=== PATIENT | female | born 1970 | race Caucasian/White ===

== ENCOUNTER 2020-07-08 12:09 | Observation (INO) | payer SELFPAY ==
[~2020-07-08] VITALS: Ht 160 cm; Wt 49.9 kg
[~2020-07-08 12:09] MED LIST: ALBU90OI6 INH; AMOX500 PO; BISA5EC PO; CODACE30 PO; CYCL10 PO; DIAZ5; DIAZ5 PO; DIPH25 PO; EPIN.3I IM; FLUO.1OPO OU; HYDACE5 PO; IBUP600 PO; IBUP800 PO; LORATADINE; MAGCIT300 PO; NAPR375 PO; NAPR500 PO; Norco 5-325 Ta1 EACH PO; OMEP20ER PO; PENVK500 PO; PRED10 PO; PRED20 PO; PROACE100 PO; PROM25 PO; RXPROACE PO; TRAM50 PO; Zithromax250 MG PO
[2020-07-08 12:58] LABS: Source, Urine Clean Catch
[2020-07-08 13:03] LABS: BASOPHILS ABSOLUTE AUTO 0.02 K/mm3 (0.00-0.23); BASOPHILS PERCENT AUTO 0 % (0-2); EOSINOPHILS ABSOLUTE AUTO 0.08 K/mm3 (0.00-0.68); EOSINOPHILS PERCENT AUTO 1 % (0-6); Hematocrit 44.4 % (33.0-51.0); Hemoglobin 14.1 g/dL (11.5-16.0); IMMATURE GRAN ABSOLUTE AUTO 0.01 K/mm3 (0.00-0.10); IMMATURE GRAN PERCENT AUTO 0 % (0-1); LYMPHOCYTES ABSOLUTE AUTO 1.71 K/mm3 (0.84-5.20); LYMPHOCYTES PERCENT AUTO 27 % (21-46); MONOCYTES ABSOLUTE AUTO 0.33 K/mm3 (0.16-1.47); MONOCYTES PERCENT AUTO 5 % (4-13); Mean Corpuscular HGB 28.2 pg (26.0-34.0); Mean Corpuscular HGB Conc 31.8 g/dL (31.5-36.5); Mean Corpuscular Volume 89 fL (80-100); Mean Platelet Volume 9.9 fL (9.1-12.4); NEUTROPHILS ABSOLUTE AUTO 4.17 K/mm3 (1.96-9.15); NEUTROPHILS PERCENT AUTO 66 % (41-73); Platelet Count 218 K/mm3 (150-400); RDW Coefficient Variation 13.3 % (11.7-14.2); RDW Standard Deviation 43.5 fL (35.1-46.3); White Blood Cell Count 6.32 K/mm3 (4.00-11.30)
[2020-07-08 13:06] LABS: Appearance, Urine Clear (Clear); Bilirubin, Urine Neg (Neg); Blood, Urine Neg (Neg); Color, Urine Yellow (P-Yellow); Glucose Qualitative, Urine Neg (Neg); Ketones, Urine Neg (Neg); Leukocyte Esterase, Urine Neg (Neg); Nitrite, Urine Neg (Neg); Protein, Urine Neg (Neg); Urobilinogen, Urine NORM (Normal); pH, Urine 6.5 (5.0-8.0)
[2020-07-08 13:21] LABS: Alanine Aminotransfer (ALT/SGP 18 U/L (12-78); Albumin, Blood 3.8 g/dL (3.4-5.0); Albumin/Globulin Ratio 1.2 (0.8-1.8); Alk Phos 61 U/L (50-136); Anion Gap 4 mmol/L (6-16); Aspartate Aminotrans (AST/SGOT 11 U/L (12-37); Bilirubin, Total 0.4 mg/dL (0.1-1.0); Blood Urea Nitrogen 11 mg/dL (8-24); Bun/Creatinine Ratio 15.4 (12.0-20.0); CO2, Blood 29 mmol/L (21-32); Calcium, Blood 9.1 mg/dL (8.5-10.1); Chloride, Blood 108 mmol/L (98-108); Creatinine, Blood 0.71 mg/dL (0.40-1.00); Ethanol (Alcohol), Blood, Med <3 mg/dL; Globulin, Blood 3.3 g/dL (2.2-4.0); Glomerular Filtration Rate >60 (60-); Glucose, Blood 82 mg/dL (70-99); Potassium, Blood 4.4 mmol/L (3.5-5.5); Salicylate 3.6 mg/dL (2.8-20.0); Sodium, Blood 141 mmol/L (136-145); Total Protein, Blood 7.1 g/dL (6.4-8.2)
[2020-07-08 13:25] LABS: U Amphetamine Screen DETECTED; U Barbituate Screen Not Detected; U Benzodiazapine Screen Not Detected; U Buprenorphine Screen Not Detected; U Cannabinoids Screen Not Detected; U Cocaine Screen Not Detected; U Methadone Screen Not Detected; U Methamphetamine Screen Not Detected; U Opiates Screen Not Detected; U Oxycodone Screen Not Detected; U Phencyclidine Screen Not Detected; U Propoxyphene Screen Not Detected
[2020-07-08 13:27] LABS: Acetaminophen, Random <2.0 ug/mL (10.0-30.0)
== END 2020-07-11 08:20 ==
LOC: ER 12:09 → EOR 12:10
PROVIDERS: ADMIT Emergency Medicine
DX: F20.9 Schizophrenia, unspecified (principal); F15.10 Other stimulant abuse, uncomplicated; F12.10 Cannabis abuse, uncomplicated; F43.10 Post-traumatic stress disorder, unspecified; J45.909 Unspecified asthma, uncomplicated; Z88.1 Allergy status to other antibiotic agents; Z91.013 Allergy to seafood; Z20.828 Contact with and (suspected) exposure to other viral communicable diseases
CPT/HCPCS: 36415; 80053; 81003; 81025; 85025; 93005; 93010; 99285; G0378; G0480; Q3014; U0002

== ENCOUNTER → 2021-03-12 | Outpatient (CLI) | payer OTHER | END | disposition home or self-care (01) | LOC: LAB 14:20 → LAB SHORT 14:20 | DX: N30.00 Acute cystitis without hematuria (principal) | CPT/HCPCS: 87086 ==

== ENCOUNTER 2021-08-25 11:29 | Observation (INO) | payer OTHER ==
[~2021-08-25] VITALS: Ht 162.6 cm; Wt 68.0 kg
[~2021-08-25 11:29] MED LIST changes: +HYDHCL25 PO; +OLAN10 PO; +PSEUDOEPHEDRINE30 M2 PO; +SERT25 PO; +TRAZ100 PO
[2021-08-25 16:14] LABS: BASOPHILS ABSOLUTE AUTO 0.01 K/mm3 (0.00-0.23); BASOPHILS PERCENT AUTO 0 % (0-2); EOSINOPHILS ABSOLUTE AUTO 0.02 K/mm3 (0.00-0.68); EOSINOPHILS PERCENT AUTO 0 % (0-6); Hematocrit 40.1 % (33.0-51.0); Hemoglobin 13.2 g/dL (11.5-16.0); IMMATURE GRAN ABSOLUTE AUTO 0.01 K/mm3 (0.00-0.10); IMMATURE GRAN PERCENT AUTO 0 % (0-1); LYMPHOCYTES ABSOLUTE AUTO 1.44 K/mm3 (0.84-5.20); LYMPHOCYTES PERCENT AUTO 26 % (21-46); MONOCYTES ABSOLUTE AUTO 0.35 K/mm3 (0.16-1.47); MONOCYTES PERCENT AUTO 6 % (4-13); Mean Corpuscular HGB 27.8 pg (26.0-34.0); Mean Corpuscular HGB Conc 32.9 g/dL (31.5-36.5); Mean Corpuscular Volume 85 fL (80-100); Mean Platelet Volume 10.1 fL (9.1-12.4); NEUTROPHILS ABSOLUTE AUTO 3.74 K/mm3 (1.96-9.15); NEUTROPHILS PERCENT AUTO 67 % (41-73); Platelet Count 297 K/mm3 (150-400); RDW Coefficient Variation 12.8 % (11.7-14.2); RDW Standard Deviation 39.6 fL (35.1-46.3); Red Blood Cell Count 4.74 M/mm3 (3.80-5.20); White Blood Cell Count 5.57 K/mm3 (4.00-11.30)
[2021-08-25 16:17] LABS: Source, Urine Clean Catch
[2021-08-25 16:42] LABS: Alanine Aminotransfer (ALT/SGP 15 U/L (12-78); Albumin, Blood 3.6 g/dL (3.4-5.0); Albumin/Globulin Ratio 0.9 (0.8-1.8); Alk Phos 77 U/L (50-136); Anion Gap 3 mmol/L (6-16); Aspartate Aminotrans (AST/SGOT 11 U/L (12-37); Bilirubin, Total 0.5 mg/dL (0.1-1.0); Blood Urea Nitrogen 12 mg/dL (8-24); Bun/Creatinine Ratio 14.7 (12.0-20.0); CO2, Blood 29 mmol/L (21-32); Calcium, Blood 9.2 mg/dL (8.5-10.1); Chloride, Blood 105 mmol/L (98-108); Creatinine, Blood 0.81 mg/dL (0.40-1.00); Ethanol (Alcohol), Blood, Med <3 mg/dL; Globulin, Blood 3.8 g/dL (2.2-4.0); Glomerular Filtration Rate >60 (60-); Glucose, Blood 81 mg/dL (70-99); Potassium, Blood 4.3 mmol/L (3.5-5.5); Salicylate 1.9 mg/dL (2.8-20.0); Sodium, Blood 137 mmol/L (136-145); Total Protein, Blood 7.4 g/dL (6.4-8.2)
[2021-08-25 16:58] LABS: Appearance, Urine Clear (Clear); Bilirubin, Urine Neg (Neg); Blood, Urine Neg (Neg); Color, Urine Yellow (P-Yellow); Glucose Qualitative, Urine Neg (Neg); Ketones, Urine 2+ (Neg); Leukocyte Esterase, Urine 1+ (Neg); Nitrite, Urine Neg (Neg); Protein, Urine Neg (Neg); Specific Gravity, Urine 1.025 (1.003-1.022); Urobilinogen, Urine NORM (Normal)
[2021-08-25 17:00] LABS: SARS-Cov-2 (COVID-19) PCR, MMC NEGATIVE (NEGATIVE)
[2021-08-25 18:16] LABS: U Amphetamine Screen DETECTED; U Barbituate Screen Not Detected; U Benzodiazapine Screen Not Detected; U Buprenorphine Screen Not Detected; U Cannabinoids Screen DETECTED; U Cocaine Screen Not Detected; U Methadone Screen Not Detected; U Methamphetamine Screen DETECTED; U Opiates Screen Not Detected; U Oxycodone Screen Not Detected; U Phencyclidine Screen Not Detected; U Propoxyphene Screen Not Detected
[2021-08-25 18:19] LABS: Bacteria Few /hpf; Mucus Light (0-Heavy); Squamous Epithelial Cells Few /hpf (Few)
== END 2021-08-27 15:16 ==
LOC: ER 11:29 → EOR 11:30
PROVIDERS: Physician Assistant; ADMIT Student in an Organized Health Care Education/Training Program
DX: F32.3 Major depressive disorder, single episode, severe with psychotic features (principal); F15.10 Other stimulant abuse, uncomplicated; F43.10 Post-traumatic stress disorder, unspecified; Z20.822 Contact with and (suspected) exposure to COVID-19; Z91.013 Allergy to seafood; Z88.1 Allergy status to other antibiotic agents
CPT/HCPCS: 80053; 81001; 81025; 84443; 85025; 87086; 93005; 93010; 99285; A9270; G0378; G0480; Q3014; U0004

== ENCOUNTER 2021-10-11 10:57 | Observation (INO) | payer OTHER ==
[~2021-10-11] VITALS: Ht 162.6 cm; Wt 68.0 kg
[2021-10-11] MEDS ORDERED: TRAZ150T57 PO (12:30)
[2021-10-11] MEDS ORDERED: OLANZAPINE5 M1 PO (12:30)
[2021-10-11] MEDS ORDERED: ZOLOFT50 MG PO (12:30)
[2021-10-11] MEDS ORDERED: HYDHCL25 PO (12:32)
[2021-10-11 12:54] LABS: BASOPHILS ABSOLUTE AUTO 0.02 K/mm3 (0.00-0.23); BASOPHILS PERCENT AUTO 0 % (0-2); EOSINOPHILS ABSOLUTE AUTO 0.06 K/mm3 (0.00-0.68); EOSINOPHILS PERCENT AUTO 1 % (0-6); Hematocrit 40.5 % (33.0-51.0); IMMATURE GRAN ABSOLUTE AUTO 0.03 K/mm3 (0.00-0.10); IMMATURE GRAN PERCENT AUTO 0 % (0-1); LYMPHOCYTES ABSOLUTE AUTO 1.25 K/mm3 (0.84-5.20); LYMPHOCYTES PERCENT AUTO 18 % (21-46); MONOCYTES ABSOLUTE AUTO 0.41 K/mm3 (0.16-1.47); MONOCYTES PERCENT AUTO 6 % (4-13); Mean Corpuscular HGB 27.5 pg (26.0-34.0); Mean Corpuscular HGB Conc 32.1 g/dL (31.5-36.5); Mean Corpuscular Volume 86 fL (80-100); Mean Platelet Volume 9.8 fL (9.1-12.4); NEUTROPHILS ABSOLUTE AUTO 5.03 K/mm3 (1.96-9.15); NEUTROPHILS PERCENT AUTO 74 % (41-73); Platelet Count 222 K/mm3 (150-400); RDW Coefficient Variation 13.6 % (11.7-14.2); RDW Standard Deviation 42.5 fL (35.1-46.3); Red Blood Cell Count 4.72 M/mm3 (3.80-5.20)
[2021-10-11 13:16] LABS: Ethanol (Alcohol), Blood, Med <3 mg/dL; Salicylate 2.6 mg/dL (2.8-20.0)
[2021-10-11 13:17] LABS: Alanine Aminotransfer (ALT/SGP 20 U/L (12-78); Albumin, Blood 3.7 g/dL (3.4-5.0); Alk Phos 67 U/L (50-136); Anion Gap 5 mmol/L (6-16); Aspartate Aminotrans (AST/SGOT 13 U/L (12-37); Bilirubin, Total 0.5 mg/dL (0.1-1.0); Blood Urea Nitrogen 18 mg/dL (8-24); Bun/Creatinine Ratio 25.4 (12.0-20.0); CO2, Blood 29 mmol/L (21-32); Chloride, Blood 104 mmol/L (98-108); Creatinine, Blood 0.71 mg/dL (0.40-1.00); Globulin, Blood 3.8 g/dL (2.2-4.0); Glomerular Filtration Rate >60 (60-); Glucose, Blood 71 mg/dL (70-99); Potassium, Blood 3.9 mmol/L (3.5-5.5); Sodium, Blood 138 mmol/L (136-145); Total Protein, Blood 7.5 g/dL (6.4-8.2)
[2021-10-11 13:23] LABS: Acetaminophen, Random <2.0 ug/mL (10.0-30.0)
[2021-10-11] MEDS ORDERED: RISP1 PO (16:05)
[2021-10-11 16:10] LABS: Source, Urine Clean Catch
[2021-10-11 16:25] LABS: Appearance, Urine Clear (Clear); Bilirubin, Urine Neg (Neg); Blood, Urine 1+ (Neg); Color, Urine Amber (P-Yellow); Glucose Qualitative, Urine Neg (Neg); Ketones, Urine 3+ (Neg); Leukocyte Esterase, Urine 3+ (Neg); Nitrite, Urine Pos (Neg); Protein, Urine 2+ (Neg); Urobilinogen, Urine NORM (Normal)
[2021-10-11 16:34] LABS: Influenza A, PCR NEGATIVE (NEGATIVE); Influenza B, PCR NEGATIVE (NEGATIVE); Resp Syncytial Virus, PCR NEGATIVE (NEGATIVE); SARS-Cov-2 (COVID-19) PCR, MMC NEGATIVE (NEGATIVE)
[2021-10-11 16:38] LABS: Bacteria Many /hpf; Squamous Epithelial Cells Few /hpf (Few)
[2021-10-11 16:43] LABS: U Amphetamine Screen DETECTED; U Barbituate Screen Not Detected; U Benzodiazapine Screen Not Detected; U Buprenorphine Screen Not Detected; U Cannabinoids Screen Not Detected; U Cocaine Screen Not Detected; U Methadone Screen Not Detected; U Methamphetamine Screen DETECTED; U Opiates Screen Not Detected; U Oxycodone Screen Not Detected; U Phencyclidine Screen Not Detected; U Propoxyphene Screen Not Detected
== END 2021-10-13 17:20 ==
LOC: ER 10:57 → EOR 10:58
PROVIDERS: Physician Assistant; ADMIT Emergency Medicine
DX: F20.9 Schizophrenia, unspecified (principal); F43.10 Post-traumatic stress disorder, unspecified; F17.210 Nicotine dependence, cigarettes, uncomplicated; Z20.822 Contact with and (suspected) exposure to COVID-19; F15.10 Other stimulant abuse, uncomplicated; F12.10 Cannabis abuse, uncomplicated
CPT/HCPCS: 0241U; 80053; 81001; 81025; 85025; 87077; 87086; 87186; 93005; 93010; 99285; A9270; G0378; G0480; Q3014

== ENCOUNTER 2021-11-22 16:57 | Observation (INO) | payer OTHER ==
[~2021-11-22] VITALS: Ht 162.6 cm; Wt 69.4 kg
[~2021-11-22 16:57] MED LIST changes: +OLANZAPINE5 M1 PO; +RISP1 PO; +TRAZ150T57 PO; +ZOLOFT50 MG PO
[2021-11-22 17:37] LABS: Source, Urine Clean Catch
[2021-11-22 17:45] LABS: Appearance, Urine Clear (Clear); Bilirubin, Urine Neg (Neg); Blood, Urine Neg (Neg); Color, Urine Yellow (P-Yellow); Glucose Qualitative, Urine Neg (Neg); Ketones, Urine Neg (Neg); Leukocyte Esterase, Urine Neg (Neg); Nitrite, Urine Neg (Neg); Protein, Urine Neg (Neg); Specific Gravity, Urine 1.015 (1.003-1.022); Urobilinogen, Urine NORM (Normal)
[2021-11-22 17:57] LABS: U Amphetamine Screen DETECTED; U Barbituate Screen Not Detected; U Benzodiazapine Screen Not Detected; U Buprenorphine Screen Not Detected; U Cannabinoids Screen Not Detected; U Cocaine Screen Not Detected; U Methadone Screen Not Detected; U Methamphetamine Screen DETECTED; U Opiates Screen Not Detected; U Oxycodone Screen Not Detected; U Phencyclidine Screen Not Detected; U Propoxyphene Screen Not Detected
[2021-11-22 18:24] LABS: Ethanol (Alcohol), Blood, Med 4 mg/dL
[2021-11-22 18:34] LABS: BASOPHILS ABSOLUTE AUTO 0.02 K/mm3 (0.00-0.23); BASOPHILS PERCENT AUTO 0 % (0-2); EOSINOPHILS ABSOLUTE AUTO 0.03 K/mm3 (0.00-0.68); EOSINOPHILS PERCENT AUTO 1 % (0-6); Hematocrit 36.6 % (33.0-51.0); Hemoglobin 12.2 g/dL (11.5-16.0); IMMATURE GRAN ABSOLUTE AUTO 0.02 K/mm3 (0.00-0.10); IMMATURE GRAN PERCENT AUTO 0 % (0-1); LYMPHOCYTES ABSOLUTE AUTO 1.21 K/mm3 (0.84-5.20); LYMPHOCYTES PERCENT AUTO 18 % (21-46); MONOCYTES ABSOLUTE AUTO 0.51 K/mm3 (0.16-1.47); MONOCYTES PERCENT AUTO 8 % (4-13); Mean Corpuscular HGB Conc 33.3 g/dL (31.5-36.5); Mean Corpuscular Volume 84 fL (80-100); Mean Platelet Volume 9.8 fL (9.1-12.4); NEUTROPHILS ABSOLUTE AUTO 4.84 K/mm3 (1.96-9.15); NEUTROPHILS PERCENT AUTO 73 % (41-73); Platelet Count 258 K/mm3 (150-400); RDW Standard Deviation 43.3 fL (35.1-46.3); Red Blood Cell Count 4.35 M/mm3 (3.80-5.20); White Blood Cell Count 6.63 K/mm3 (4.00-11.30)
[2021-11-22 18:37] LABS: Acetaminophen, Random <2.0 ug/mL (10.0-30.0); Alanine Aminotransfer (ALT/SGP 16 U/L (12-78); Albumin/Globulin Ratio 1.1 (0.8-1.8); Alk Phos 68 U/L (50-136); Anion Gap 3 mmol/L (6-16); Aspartate Aminotrans (AST/SGOT 16 U/L (12-37); Bilirubin, Total 0.5 mg/dL (0.1-1.0); Blood Urea Nitrogen 8 mg/dL (8-24); Bun/Creatinine Ratio 11.5 (12.0-20.0); CO2, Blood 28 mmol/L (21-32); Calcium, Blood 9.2 mg/dL (8.5-10.1); Chloride, Blood 102 mmol/L (98-108); Creatinine, Blood 0.69 mg/dL (0.40-1.00); Globulin, Blood 3.5 g/dL (2.2-4.0); Glomerular Filtration Rate >60 (60-); Glucose, Blood 107 mg/dL (70-99); Potassium, Blood 3.6 mmol/L (3.5-5.5); Salicylate <1.7 mg/dL (2.8-20.0); Sodium, Blood 133 mmol/L (136-145); Total Protein, Blood 7.5 g/dL (6.4-8.2)
[2021-11-22] MEDS ORDERED: RISPERIDONE PO (19:45)
[2021-11-22 20:14] LABS: Influenza A, PCR NEGATIVE (NEGATIVE); Influenza B, PCR NEGATIVE (NEGATIVE); Resp Syncytial Virus, PCR NEGATIVE (NEGATIVE); SARS-Cov-2 (COVID-19) PCR, MMC NEGATIVE (NEGATIVE)
[2021-11-24 14:29] LABS: BASOPHILS ABSOLUTE AUTO 0.02 K/mm3 (0.00-0.23); BASOPHILS PERCENT AUTO 0 % (0-2); EOSINOPHILS ABSOLUTE AUTO 0.07 K/mm3 (0.00-0.68); EOSINOPHILS PERCENT AUTO 1 % (0-6); Hematocrit 37.2 % (33.0-51.0); Hemoglobin 11.9 g/dL (11.5-16.0); IMMATURE GRAN ABSOLUTE AUTO 0.02 K/mm3 (0.00-0.10); IMMATURE GRAN PERCENT AUTO 0 % (0-1); LYMPHOCYTES ABSOLUTE AUTO 1.19 K/mm3 (0.84-5.20); LYMPHOCYTES PERCENT AUTO 23 % (21-46); MONOCYTES PERCENT AUTO 8 % (4-13); Mean Corpuscular HGB 27.5 pg (26.0-34.0); Mean Corpuscular Volume 86 fL (80-100); NEUTROPHILS ABSOLUTE AUTO 3.55 K/mm3 (1.96-9.15); NEUTROPHILS PERCENT AUTO 68 % (41-73); Platelet Count 218 K/mm3 (150-400); RDW Standard Deviation 43.9 fL (35.1-46.3); Red Blood Cell Count 4.32 M/mm3 (3.80-5.20); White Blood Cell Count 5.25 K/mm3 (4.00-11.30)
[2021-11-24 14:44] LABS: Anion Gap 2 mmol/L (6-16); Blood Urea Nitrogen 23 mg/dL (8-24); Bun/Creatinine Ratio 28.4 (12.0-20.0); CO2, Blood 30 mmol/L (21-32); Chloride, Blood 107 mmol/L (98-108); Creatinine, Blood 0.81 mg/dL (0.40-1.00); Glomerular Filtration Rate >60 (60-); Glucose, Blood 99 mg/dL (70-99); Potassium, Blood 4.1 mmol/L (3.5-5.5); Sodium, Blood 139 mmol/L (136-145)
== END 2021-11-24 18:19 ==
LOC: ER 16:57 → EOR 16:58
PROVIDERS: Physician Assistant; ADMIT Student in an Organized Health Care Education/Training Program
DX: F20.9 Schizophrenia, unspecified (principal); F15.251 Other stimulant dependence with stimulant-induced psychotic disorder with hallucinations; F19.10 Other psychoactive substance abuse, uncomplicated; J45.909 Unspecified asthma, uncomplicated; Z88.1 Allergy status to other antibiotic agents; Z91.013 Allergy to seafood; F17.210 Nicotine dependence, cigarettes, uncomplicated; Z91.51 Personal history of suicidal behavior; Z20.822 Contact with and (suspected) exposure to COVID-19; Z81.8 Family history of other mental and behavioral disorders
CPT/HCPCS: 0241U; 36415; 80048; 80053; 81003; 81025; 85025; 93005; 93010; 99285-25; A9270; G0378; G0480; J7030; Q3014

== ENCOUNTER 2022-01-05 10:10 | Observation (INO) | payer OTHER ==
[~2022-01-05] VITALS: Ht 162.6 cm; Wt 72.6 kg
[~2022-01-05 10:10] MED LIST changes: +RISPERIDONE PO
[2022-01-05 11:01] LABS: Source, Urine Clean Catch
[2022-01-05 11:02] LABS: BASOPHILS ABSOLUTE AUTO 0.03 K/mm3 (0.00-0.23); BASOPHILS PERCENT AUTO 0 % (0-2); EOSINOPHILS ABSOLUTE AUTO 0.05 K/mm3 (0.00-0.68); EOSINOPHILS PERCENT AUTO 1 % (0-6); Hemoglobin 12.8 g/dL (11.5-16.0); IMMATURE GRAN ABSOLUTE AUTO 0.03 K/mm3 (0.00-0.10); IMMATURE GRAN PERCENT AUTO 0 % (0-1); LYMPHOCYTES ABSOLUTE AUTO 1.29 K/mm3 (0.84-5.20); LYMPHOCYTES PERCENT AUTO 16 % (21-46); MONOCYTES ABSOLUTE AUTO 0.52 K/mm3 (0.16-1.47); MONOCYTES PERCENT AUTO 6 % (4-13); Mean Corpuscular HGB 27.6 pg (26.0-34.0); Mean Corpuscular HGB Conc 32.8 g/dL (31.5-36.5); Mean Corpuscular Volume 84 fL (80-100); Mean Platelet Volume 9.9 fL (9.1-12.4); NEUTROPHILS ABSOLUTE AUTO 6.27 K/mm3 (1.96-9.15); NEUTROPHILS PERCENT AUTO 77 % (41-73); Platelet Count 260 K/mm3 (150-400); RDW Coefficient Variation 13.4 % (11.7-14.2); RDW Standard Deviation 41.2 fL (35.1-46.3); Red Blood Cell Count 4.64 M/mm3 (3.80-5.20); White Blood Cell Count 8.19 K/mm3 (4.00-11.30)
[2022-01-05 11:05] LABS: Appearance, Urine Clear (Clear); Bilirubin, Urine Neg (Neg); Blood, Urine Neg (Neg); Color, Urine Yellow (P-Yellow); Glucose Qualitative, Urine Neg (Neg); Ketones, Urine Neg (Neg); Leukocyte Esterase, Urine Neg (Neg); Nitrite, Urine Neg (Neg); Protein, Urine Neg (Neg); Urobilinogen, Urine NORM (Normal)
[2022-01-05 11:26] LABS: Alanine Aminotransfer (ALT/SGP 15 U/L (12-78); Albumin, Blood 4.2 g/dL (3.4-5.0); Albumin/Globulin Ratio 1.2 (0.8-1.8); Alk Phos 67 U/L (50-136); Anion Gap 4 mmol/L (6-16); Aspartate Aminotrans (AST/SGOT 12 U/L (12-37); Bilirubin, Total 0.6 mg/dL (0.1-1.0); Blood Urea Nitrogen 10 mg/dL (8-24); Bun/Creatinine Ratio 13.3 (12.0-20.0); CO2, Blood 27 mmol/L (21-32); Chloride, Blood 103 mmol/L (98-108); Creatinine, Blood 0.75 mg/dL (0.40-1.00); Ethanol (Alcohol), Blood, Med <3 mg/dL; Globulin, Blood 3.6 g/dL (2.2-4.0); Glomerular Filtration Rate >60 (60-); Glucose, Blood 100 mg/dL (70-99); Potassium, Blood 3.8 mmol/L (3.5-5.5); Salicylate <1.7 mg/dL (2.8-20.0); Sodium, Blood 134 mmol/L (136-145); Total Protein, Blood 7.8 g/dL (6.4-8.2)
[2022-01-05 11:46] LABS: U Amphetamine Screen DETECTED; U Barbituate Screen Not Detected; U Benzodiazapine Screen Not Detected; U Cocaine Screen Not Detected; U Methamphetamine Screen DETECTED
[2022-01-05 11:47] LABS: U Buprenorphine Screen Not Detected; U Cannabinoids Screen Not Detected; U Methadone Screen Not Detected; U Opiates Screen Not Detected; U Oxycodone Screen Not Detected; U Phencyclidine Screen Not Detected; U Propoxyphene Screen Not Detected
[2022-01-05 11:48] LABS: Acetaminophen, Random <2.0 ug/mL (10.0-30.0)
[2022-01-05 12:08] LABS: Influenza A, PCR NEGATIVE (NEGATIVE); Influenza B, PCR NEGATIVE (NEGATIVE); Resp Syncytial Virus, PCR NEGATIVE (NEGATIVE); SARS-Cov-2 (COVID-19) PCR, MMC NEGATIVE (NEGATIVE)
== END 2022-01-09 15:26 | disposition home or self-care (01) ==
LOC: ER 10:10 → EOR 10:11
PROVIDERS: Student in an Organized Health Care Education/Training Program; ADMIT Emergency Medicine
DX: F20.9 Schizophrenia, unspecified (principal); F17.210 Nicotine dependence, cigarettes, uncomplicated; F15.10 Other stimulant abuse, uncomplicated; F19.10 Other psychoactive substance abuse, uncomplicated; Z88.1 Allergy status to other antibiotic agents; Z91.013 Allergy to seafood; Z20.822 Contact with and (suspected) exposure to COVID-19
CPT/HCPCS: 0241U; 80053; 81003; 81025; 85025; 86592; 99285; A9270; G0378; G0480; J2426; Q3014

== ENCOUNTER 2022-01-18 18:21 | Observation (INO) | payer OTHER ==
[~2022-01-18] VITALS: Ht 162.6 cm; Wt 72.6 kg
[2022-01-18] MEDS ORDERED: HYDHCL25 PO (18:37)
[2022-01-18] MEDS ORDERED: PALI3TAB (18:38)
[2022-01-18 21:28] LABS: BASOPHILS ABSOLUTE AUTO 0.02 K/mm3 (0.00-0.23); BASOPHILS PERCENT AUTO 0 % (0-2); EOSINOPHILS ABSOLUTE AUTO 0.06 K/mm3 (0.00-0.68); EOSINOPHILS PERCENT AUTO 1 % (0-6); Hematocrit 36.5 % (33.0-51.0); Hemoglobin 11.7 g/dL (11.5-16.0); IMMATURE GRAN ABSOLUTE AUTO 0.01 K/mm3 (0.00-0.10); IMMATURE GRAN PERCENT AUTO 0 % (0-1); LYMPHOCYTES ABSOLUTE AUTO 1.46 K/mm3 (0.84-5.20); LYMPHOCYTES PERCENT AUTO 25 % (21-46); MONOCYTES ABSOLUTE AUTO 0.39 K/mm3 (0.16-1.47); MONOCYTES PERCENT AUTO 7 % (4-13); Mean Corpuscular HGB 27.2 pg (26.0-34.0); Mean Corpuscular HGB Conc 32.1 g/dL (31.5-36.5); Mean Corpuscular Volume 85 fL (80-100); Mean Platelet Volume 10.3 fL (9.1-12.4); NEUTROPHILS ABSOLUTE AUTO 3.96 K/mm3 (1.96-9.15); NEUTROPHILS PERCENT AUTO 67 % (41-73); Platelet Count 230 K/mm3 (150-400); RDW Coefficient Variation 13.4 % (11.7-14.2); RDW Standard Deviation 41.8 fL (35.1-46.3)
[2022-01-18 21:42] LABS: Acetaminophen, Random <2.0 ug/mL (10.0-30.0); Alanine Aminotransfer (ALT/SGP 17 U/L (12-78); Albumin, Blood 3.6 g/dL (3.4-5.0); Albumin/Globulin Ratio 1.2 (0.8-1.8); Alk Phos 58 U/L (50-136); Anion Gap 5 mmol/L (6-16); Aspartate Aminotrans (AST/SGOT 7 U/L (12-37); Bilirubin, Total 0.2 mg/dL (0.1-1.0); Blood Urea Nitrogen 10 mg/dL (8-24); Bun/Creatinine Ratio 12.7 (12.0-20.0); CO2, Blood 26 mmol/L (21-32); Calcium, Blood 8.7 mg/dL (8.5-10.1); Chloride, Blood 107 mmol/L (98-108); Creatinine, Blood 0.79 mg/dL (0.40-1.00); Ethanol (Alcohol), Blood, Med <3 mg/dL; Glomerular Filtration Rate >60 (60-); Glucose, Blood 95 mg/dL (70-99); Potassium, Blood 3.7 mmol/L (3.5-5.5); Salicylate <1.7 mg/dL (2.8-20.0); Sodium, Blood 138 mmol/L (136-145); Total Protein, Blood 6.6 g/dL (6.4-8.2)
[2022-01-18 22:00] LABS: Influenza A, PCR NEGATIVE (NEGATIVE); Influenza B, PCR NEGATIVE (NEGATIVE); Resp Syncytial Virus, PCR NEGATIVE (NEGATIVE); SARS-Cov-2 (COVID-19) PCR, MMC NEGATIVE (NEGATIVE)
[2022-01-19 10:07] LABS: Source, Urine Clean Catch
[2022-01-19 10:12] LABS: Appearance, Urine Clear (Clear); Bilirubin, Urine Neg (Neg); Blood, Urine Neg (Neg); Color, Urine Yellow (P-Yellow); Glucose Qualitative, Urine Neg (Neg); Ketones, Urine Neg (Neg); Leukocyte Esterase, Urine 1+ (Neg); Nitrite, Urine Neg (Neg); Protein, Urine Neg (Neg); Specific Gravity, Urine 1.015 (1.003-1.022); Urobilinogen, Urine NORM (Normal)
[2022-01-19 10:25] LABS: U Amphetamine Screen DETECTED; U Barbituate Screen Not Detected; U Benzodiazapine Screen Not Detected; U Buprenorphine Screen Not Detected; U Cannabinoids Screen Not Detected; U Cocaine Screen Not Detected; U Methadone Screen Not Detected; U Methamphetamine Screen DETECTED; U Opiates Screen Not Detected; U Oxycodone Screen Not Detected; U Phencyclidine Screen Not Detected; U Propoxyphene Screen Not Detected
[2022-01-19 10:33] LABS: Bacteria Few /hpf; Red Blood Cells, Urine 0-2 /hpf (0-2); Squamous Epithelial Cells Few /hpf (Few); Transitional Epithelial Cells Rare /hpf (0-Rare)
[2022-01-19 10:34] LABS: Mucus Light (0-Heavy)
== END 2022-01-20 09:10 ==
LOC: ER 18:21 → EOR 18:22 → ER 01-19 18:22 → EOR 01-19 18:22
PROVIDERS: Student in an Organized Health Care Education/Training Program; ADMIT Emergency Medicine
DX: F20.9 Schizophrenia, unspecified (principal); F15.10 Other stimulant abuse, uncomplicated; F19.10 Other psychoactive substance abuse, uncomplicated; J45.909 Unspecified asthma, uncomplicated; F17.200 Nicotine dependence, unspecified, uncomplicated; Z91.013 Allergy to seafood; Z88.1 Allergy status to other antibiotic agents; Z79.899 Other long term (current) drug therapy; Z20.822 Contact with and (suspected) exposure to COVID-19
CPT/HCPCS: 0241U; 80053; 81001; 81025; 85025; 86592; 87086; 93005; 93010; 99285-25; A9270; G0378; G0480

== ENCOUNTER 2022-03-07 11:24 | Observation (INO) | payer OTHER ==
[~2022-03-07] VITALS: Ht 162.6 cm; Wt 52.6 kg
[~2022-03-07 11:24] MED LIST changes: +PALI3TAB
[2022-03-07 12:24] LABS: BASOPHILS ABSOLUTE AUTO 0.01 K/mm3 (0.00-0.23); BASOPHILS PERCENT AUTO 0 % (0-2); EOSINOPHILS ABSOLUTE AUTO 0.06 K/mm3 (0.00-0.68); EOSINOPHILS PERCENT AUTO 1 % (0-6); Hematocrit 41.6 % (33.0-51.0); IMMATURE GRAN ABSOLUTE AUTO 0.03 K/mm3 (0.00-0.10); IMMATURE GRAN PERCENT AUTO 1 % (0-1); LYMPHOCYTES ABSOLUTE AUTO 1.28 K/mm3 (0.84-5.20); LYMPHOCYTES PERCENT AUTO 22 % (21-46); MONOCYTES ABSOLUTE AUTO 0.44 K/mm3 (0.16-1.47); MONOCYTES PERCENT AUTO 8 % (4-13); Mean Corpuscular HGB 27.1 pg (26.0-34.0); Mean Corpuscular HGB Conc 31.3 g/dL (31.5-36.5); Mean Corpuscular Volume 87 fL (80-100); Mean Platelet Volume 9.8 fL (9.1-12.4); NEUTROPHILS ABSOLUTE AUTO 4.08 K/mm3 (1.96-9.15); NEUTROPHILS PERCENT AUTO 69 % (41-73); Platelet Count 235 K/mm3 (150-400); RDW Coefficient Variation 13.9 % (11.7-14.2); RDW Standard Deviation 44.4 fL (35.1-46.3); Red Blood Cell Count 4.79 M/mm3 (3.80-5.20)
[2022-03-07 12:25] LABS: Source, Urine Clean Catch
[2022-03-07 12:27] LABS: Bilirubin, Urine Neg (Neg); Blood, Urine 2+ (Neg); Glucose Qualitative, Urine Neg (Neg); Ketones, Urine Neg (Neg); Leukocyte Esterase, Urine 3+ (Neg); Nitrite, Urine Neg (Neg); Protein, Urine 2+ (Neg); Urobilinogen, Urine NORM (Normal)
[2022-03-07 12:35] LABS: Appearance, Urine Hazy (Clear); Color, Urine Yellow (P-Yellow)
[2022-03-07 12:35] LABS: Ethanol (Alcohol), Blood, Med <3 mg/dL; Salicylate <1.7 mg/dL (2.8-20.0)
[2022-03-07 12:36] LABS: Alanine Aminotransfer (ALT/SGP 20 U/L (12-78); Albumin, Blood 3.7 g/dL (3.4-5.0); Alk Phos 72 U/L (50-136); Anion Gap 5 mmol/L (6-16); Aspartate Aminotrans (AST/SGOT 9 U/L (12-37); Bilirubin, Total 0.3 mg/dL (0.1-1.0); Blood Urea Nitrogen 11 mg/dL (8-24); Bun/Creatinine Ratio 11.9 (12.0-20.0); CO2, Blood 30 mmol/L (21-32); Chloride, Blood 103 mmol/L (98-108); Creatinine, Blood 0.93 mg/dL (0.40-1.00); Globulin, Blood 3.8 g/dL (2.2-4.0); Glomerular Filtration Rate >60 (60-); Glucose, Blood 74 mg/dL (70-99); Potassium, Blood 3.7 mmol/L (3.5-5.5); Sodium, Blood 138 mmol/L (136-145); Total Protein, Blood 7.5 g/dL (6.4-8.2)
[2022-03-07 12:36] LABS: Bacteria Few /hpf; Squamous Epithelial Cells Mod /hpf (Few); White Blood Cells, Urine 50-100 /hpf (0-5)
[2022-03-07 12:58] LABS: U Amphetamine Screen DETECTED; U Barbituate Screen Not Detected; U Benzodiazapine Screen Not Detected; U Cocaine Screen Not Detected; U Methadone Screen Not Detected; U Methamphetamine Screen DETECTED; U Opiates Screen Not Detected
[2022-03-07 12:59] LABS: U Buprenorphine Screen Not Detected; U Cannabinoids Screen Not Detected; U Oxycodone Screen Not Detected; U Phencyclidine Screen Not Detected; U Propoxyphene Screen Not Detected
[2022-03-07 13:22] LABS: Acetaminophen, Random <2.0 ug/mL (10.0-30.0)
[2022-03-08 23:08] LABS: Influenza A, PCR NEGATIVE (NEGATIVE); Influenza B, PCR NEGATIVE (NEGATIVE); Resp Syncytial Virus, PCR NEGATIVE (NEGATIVE); SARS-Cov-2 (COVID-19) PCR, MMC NEGATIVE (NEGATIVE)
== END 2022-03-09 08:36 ==
LOC: ER 11:24 → EOR 11:25
PROVIDERS: Physician Assistant; ADMIT Student in an Organized Health Care Education/Training Program
DX: F20.9 Schizophrenia, unspecified (principal); F19.10 Other psychoactive substance abuse, uncomplicated; F15.10 Other stimulant abuse, uncomplicated; F17.200 Nicotine dependence, unspecified, uncomplicated; Z91.51 Personal history of suicidal behavior; Z20.822 Contact with and (suspected) exposure to COVID-19; Z81.8 Family history of other mental and behavioral disorders; Z88.1 Allergy status to other antibiotic agents; Z91.013 Allergy to seafood
CPT/HCPCS: 0241U; 80053; 81001; 85025; 87086; 93005; 93010; 99285-25; A9270; G0378; G0480

== ENCOUNTER → 2022-07-14 | Outpatient (CLI) | payer OTHER ==
[2022-07-15 09:22] LABS: Candida species (DNA Probe) Negative (NEGATIVE); G. vaginalis (DNA Probe) Negative (NEGATIVE); T. vaginalis (DNA Probe) Negative (NEGATIVE)
[2022-07-15 19:10] LABS: HPV 16 Negative (Negative); HPV 18 Negative (Negative); HPV OTHER HR TYPES Positive (Negative)
== END | disposition home or self-care (01) ==
LOC: LAB 10:30 → LAB SHORT 10:30
PROVIDERS: Nurse Practitioner Family
DX: Z01.419 Encounter for gynecological examination (general) (routine) without abnormal findings (principal); N89.8 Other specified noninflammatory disorders of vagina
CPT/HCPCS: 87480; 87510; 87624; 87660; G0123

== ENCOUNTER → 2025-01-28 | Outpatient (CLI) | payer OTHER ==
[2025-01-31 11:35] LABS: Stool Occult Bld Immuno 1 Positive (NEGATIVE)
== END ==
LOC: LAB 12:00 → LAB SHORT 12:00
DX: Z12.11 Encounter for screening for malignant neoplasm of colon (principal)
CPT/HCPCS: G0328

== ENCOUNTER → 2025-01-28 | Outpatient (CLI) | payer OTHER ==
[2025-02-04 18:08] LABS: HPV HIGH RISK BY TMA Not Detected; HPV SOURCE Cervical
== END ==
LOC: LAB SHORT 17:06 → LAB 17:06
DX: Z01.419 Encounter for gynecological examination (general) (routine) without abnormal findings (principal)
CPT/HCPCS: 87624; G0123

== ENCOUNTER 2025-07-28 11:54 | Inpatient (IN) | payer OTHER ==
[~2025-07-28] VITALS: Ht 162.6 cm; Wt 63.0 kg
[2025-07-28] MEDS ORDERED: Polyethylene Glycol 3350 17 gm PO PRN (14:35)
[2025-07-28] MEDS ORDERED: Ondansetron 4 MG SoluTab MM PRN (14:35)
[2025-07-28] MEDS ORDERED: Aluminum Hydroxide 320MG/5ML 473 ML PO PRN (14:35)
[2025-07-28 15:40] VITALS: BP 101/66
[2025-07-28 16:03] VITALS: BP 101/66
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
[2025-07-28 21:12] VITALS: BP 91/60
--- NOTE | 2025-07-28 23:06 | NUR ---
MID SHIFT SUMMARY PT LAYING IN BED AWAKE AT START OF SHIFT. SHE DENIES ANY SI OR HI. SHE REPORTS AUDITORY HALLUCINATIONS IN WHICH SHE HEARS VOICES THAT ARE TELLING HER "I'M WORTHLESS AND NO ONE WANTS ME HERE." SHE DENIES ANY VISUAL OR TACTILE HALLUCINATIONS. PT DECLINED EVENING SNACK AND STAYED IN HER ROOM THROUGHOUT THE NIGHT. SHE STATED THAT SHE TAKES 150 MG OF TRAZODONE AT HOME AND REQUESTED AND RECEIVED PRN TRAZODONE AND MELATONIN TO ASSIST WITH SLEEP. PT INFORMED THAT THE DOSE PRESCRIBED HERE IS LESS AND TO LET THIS RN KNOW IF SHE NEEDED AN ADDITIONAL DOSE. Q15 MINUTE CHECKS TO CONTINUE PER PT SAFETY.
--- NOTE | 2025-07-29 04:07 | NUR ---
END OF SHIFT UPDATE NO ACUTE CHANGES. PT HAS REMAINED IN BED TRHOUGHOUT THE NIGHT. Q15 MINUTE CHECKS TO CONTINUE.
[2025-07-29 08:00] LABS: CHOL/HDL RATIO 1.9; Cholesterol 141 mg/dL (50-200); HDL Cholesterol 76 mg/dL (>39); LDL/HDL RATIO 0.6; Low Density Lipoprotein Chol 45 mg/dL (0-110); Triglycerides 101 mg/dL (30-160); Very Low Density Lipoprot Chol 20 mg/dL (6-32)
[2025-07-29] MEDS ORDERED: Multivitamins 1 Tab PO SCH (09:00)
[2025-07-29] MEDS ORDERED: ALBU90OI INH (09:26)
--- NOTE | 2025-07-29 09:56 | NUR ---
CONTACTED [facility] FOR MEDICATION LIST. CONFIRMED THAT PT HAS ONLY BEEN ON ALBUTEROL CONSISTENTLY. PT HAS NOT BEEN ON MOST MEDICATIONS FOR 280 DAYS. OTHER MEDICATIONS THAT WERE LISTED WERE FOR AN ACUTE ISSUE WITH NO REFILLS. MED REC COMPLETED AT THIS TIME.
--- NOTE | 2025-07-29 16:36 | NUR ---
SHIFT SUMMARY PT SLEEPING FOR MAJORITY OF THE SHIFT. PRIOR TO ADMISSION, SHE REPORTED USING METH DAILY SO MOST LIKELY IS WITHDRAWING. SHE HAS NOT ATTENDED ANY GROUPS OR MEALS THIS SHIFT DUE TO BEING TOO TIRED. SHE WAS ABLE TO BE ASSESSED THIS AFTERNOON AND DENIED SI, HI, AVTH. HOWEVER, SHE STATED THAT SHE HAS NOT BEEN HAVING HALLUCINATIONS BECAUSE SHE HAS NOT BEEN AWAKE. PT DENIES ANY NEEDS AT THIS TIME. SHE IS ROUNDED ON Q15 PER UNIT PROTOCOL FOR SAFETY AND WELLNESS.
[2025-07-29 19:43] VITALS: BP 114/65
--- NOTE | 2025-07-29 21:07 | NUR ---
DENTURES PATIENTS BOTTOM DENTURES RETRIEVED FROM BELONGINGS BIN, PER PATIENTS REQUEST TO HELP WITH EATING.
--- NOTE | 2025-07-30 04:06 | NUR ---
SHIFT SUMMARY PATIENT IN BED, VISITING WITH ROOMMATE. VERBALIZED FEELING "SAD" BECOMING TEARFUL DURING ASSESSMENT. PATIENT DENIES SI OR HI. VISUAL HALLUCINATIONS ARE NOW GONE, CONTINUES TO HAVE AUDITORY HALLUCINATIONS, BUT THE VOICES ARE NO LONGER THREATENING HARM, PATIENT DESCRIBE "NONE OF IT'S GOOD". REQUESTING TRAZODONE FOR SLEEP AID. PATIENT RETURNING TO BED AFTER EATING SNACK. APPEARS TO BE SLEEPING WELL T/O NIGHT RESP EVEN AND UNLABORED. CONTINUE TO MONITOR Q15MIN
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
--- NOTE | 2025-07-30 11:38 | NUR ---
MID SHIFT SUMMARY PT HAS BEEN IN BED SINCE START OF SHIFT, WOKE TO TAKE HER MULTIVITAMIN AND AT THAT TIME SHE VERBALLY DENIED SI/HI/AVH. SHE HAS NOT GOT UP AT ALL FOR GROUPS, BKFT OR SNACK.
--- NOTE | 2025-07-30 17:46 | NUR ---
PT HAS BEEN UP AND ACTIVE IN THE MILIEU THIS EVENING, SHE HAS SOCIALIZED MORE WITH STAFF AND PEERS, SHE HAS MADE SOME PHONE CALLS TO FAMILY, WHICH APPEARED TO BE THERAPEUTIC INTERACTIONS, DENIES SI/HI, DENIES AVTH, PT MAKES GOOD EYE CONTACT, TENDING TO SELF CARE NEEDS, SMILES AND DOES NOT SEEM TO BE RESPONDING TO INTRNAL STIMULI.
[2025-07-30 19:25] VITALS: BP 105/73
--- NOTE | 2025-07-31 03:33 | NUR ---
SHIFT SUMMARY PATIENT UP IN MILIEU, MOSTLY KEEPING TO SELF. DENIES SI, HI, OR VH. VERBALIZED THAT VOICES ARE DOWN TO A WHISPER IN THE BACKGROUND. C/O A CHEN GOOD RELIEF WITH IBUPROFEN. REQUESTING TRAZODONE WITH HS MEDICATION FOR SLEEP AID. VERBALIZED THAT SHE FEELS "GOOD" TONIGHT. APPEARS TO BE SLEEPING WELL T/O NIGHT RESP EVEN AND UNLABORED. CONTINUE TO MONITOR Q15MIN
[2025-07-31 09:13] VITALS: BP 110/66
--- NOTE | 2025-07-31 09:55 | NUR ---
No adverse events so far this shift. Patient is denying SI, HI, AH, VH. Transfer of care to IVETT Davenport at 10am.
--- NOTE | 2025-07-31 18:21 | NUR ---
ASSUMED PT CARE FROM CLIF RN @2581. NO CLINICAL CAHNGES.WILL CONTINUE POC
[2025-07-31 19:21] VITALS: BP 123/67
--- NOTE | 2025-08-01 04:15 | NUR ---
SHIFT SUMMARY: PATIENT WAS IN THE DAYROOM WATCHING A MOVIE AT THE BEGINNING OF THE SHIFT. SHE WAS ABLE TO ANSWER LEAD SYSTEMS ARCHITECT QUESTIONS IN A LOGICAL AND LINEAR MANNER. SHE ASKED QUESTIONS ABOUT THE INVEGA THAT SHE WILL START ON 08/01/25. SHE FELT POSITIVE ABOUT HOW IT MIGHT CHANGE HER LIFE. SHE DENIED SUICIDAL IDEATION, THOUGHTS OF SELF HARMING AND A/V/T HALLUCINATIONS. SHE STATED, "IT REALLY HAS HELPED TO COME IN HERE. I FEEL SO MUCH SAFER." SHE PARTICIPATED IN SNACK AND WRAP UP GROUP AT 2030 IN THE DINING AREA, AND WAS COMPLIANT WITH EVENING MEDICATIONS. SHE REMAINED UP WATCHING TELEVISION FOR A TIME, AND WAS PLEASANT AND FRIENDLY WITH STAFF AND PEERS. SHE WENT TO BED ABOUT 2200, AND WAS NOTED TO BE RESTING QUIETLY WITH EYES CLOSED AND RESPIRATIONS CONFIRMED FOR THE REMAINDER OF THE SHIFT. CONTINUING TO MONITOR FOR SAFETY WITH Q15 MINUTE CHECKS.
[2025-08-01 09:04] VITALS: BP 110/66
--- NOTE | 2025-08-01 10:58 | NUR ---
SHIFT ASSESSMENT: PT DENIED YAA AND HI, SHE ENDORSED AUDITORY HALLUCINATIONS, "THE VOICES ARE BAD, EVERY DAY, CONSTANT." SHE ENDORSED ANXIETY AND REPORTED A HEADACH. SHE DESCRIBED HER MOOD , "NOT VERY GREAT." HER GOALS TODAY ARE, "I WANT THE VOICES TO GO AWAY." PT HAS BEEN ACTIVE IN THE PT MILIEU AND HAS BEEN GOING TO GROUPS.
[2025-08-01] MEDS ORDERED: Albuterol HFA200 ACT/6.7 GM INH INH PRN (12:30)
[2025-08-01] MEDS ORDERED: Lidocaine 2% Viscous Soln 20 ML,Nystatin 100,000 Unit/ml Susp 20 ML,Mag Hydrox/Al Hydro... MT SCH (17:00)
--- NOTE | 2025-08-01 17:58 | NUR ---
PT WAS GIVEN OLANZIPE AT 1134. SHE HAS BEEN ACTIVE IN THE PT MILIEU AND GROUPS THIS AFTERNOON. PT WAS GIVEN AN INVEGA INJ AT 1310 AND APPEARED TO TOLERATE IT IT WELL. SHE HAS BEEN PLEASANT AND COOPERATIVE WITH CARE.
[2025-08-01 19:47] VITALS: BP 93/46
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
[2025-08-02 09:02] VITALS: BP 108/65
--- NOTE | 2025-08-02 16:52 | NUR ---
SHIFT SUMMARY PT A/O X4; PLEASANT AND COOPERATIVE WITH CARE. SHE DENIES SI, HI BUT ENDORSES SOME AUDIO HALLUCINATIONS. SHE SAYS THAT THE VOICES ARE "JUST THERE" AND NONE THAT ARE NEGATIVE OR COMMANDING. IN THE AFTERNOON SHE DID REPORT AN INCREASE IN BOTHERSOME AH AND WAS TREATED PER EMR. SHE ATTENDED ALL GROUPS AND IS CURRENTLY WATCHING A MOVIE IN THE GROUP ROOM.
[2025-08-02 19:14] VITALS: BP 106/59
--- NOTE | 2025-08-03 04:40 | NUR ---
SHIFT SUMMARY: PATIENT WAS IN HER BED AT THE BEGINNING OF THE SHIFT. MHA STATED THAT SHE DID EAT 100% DINNER, BUT SHE CHOSE NOT TO ATTEND SNACK, STATING SHE WAS "TOO TIRED". SHE WAS ABLE TO ANSWER [employer] [place] [employer] AND [employer] QUESTIONS IN A LOGICAL AND LINEAR MANNER, ALTHOUGH HER ANSWERS WERE SHORT DUE TO "BEING SO TIRED". SHE DENIED SUICIDAL IDEATION, STATING THAT "I GET THOSE FEELINGS BUT I DON'T HAVE THEM RIGHT NOW". SHE STATED THAT SHE WOULD FIND A TRUSTED STAFF IF SHE GETS THOSE FEELINGS. SHE DENIED THOUGHTS OF SELF HARMING AND A/V/T HALLUCINATIONS. SHE ADMITTED TO HAVING "WHAT I THINK MIGHT BE VOICES THAT OTHERS CAN'T HEAR AND SOMETIMES THEY ARE VERY BOTHERSOME" BUT THAT SHE ISN'T HEARING THEM AT THE MOMENT. SHE STATED THAT SHE WOULD FIND STAFF IF THE VOICES START TO BOTHER HER. SHE WAS COMPLIANT WITH EVENING MEDICATIONS, AND REQUESTED TRAZODONE AND MELATONIN FOR INSOMNIA, WHICH WERE GIVEN WITH GOOD EFFECT. SHE REMAINED IN BED AND WAS NOTED TO BE RESTING QUIETLY WITH EYES CLOSED AND RESPIRATIONS CONFIRMED FOR THE REMAINDER OF THE SHIFT. CONTINUING TO MONITOR FOR SAFETY WITH Q15 MINUTE CHECKS.
[2025-08-03 08:57] VITALS: BP 105/62
--- NOTE | 2025-08-03 18:10 | NUR ---
SHIFT SUMMARY PT A/O X4; PLEASANT AND COOPERATIVE WITH CARE. SHE DENIES SI, HI. SHE REPORTS HEARING SOME VOICES AND C/O OF THEM BEING BOTHERSOME THIS AFTERNOON. THIS AFTERNOON SHE REPORTED THAT THEY WERE TELLING HER THAT THEY WANTED TO KILL HER. MEDICATED WITH PRN ZYPREXA WITH GOOD EFFECT. SHE HAS BEEN ACTIVE ON THE UNIT, WATCHING TV WITH PEERS AND GOING TO MEALS.
[2025-08-03 21:04] VITALS: BP 109/55
--- NOTE | 2025-08-04 04:21 | NUR ---
SHIFT SUMMARY PATIENT UP TO NURSING DESK AT BEGINNING OF SHIFT REQUESTING HS MEDS EARLY TONIGHT. DENIES SI, HI, OR VH. VERBALIZED THAT THE THREATENING VOICES ARE ABOUT MID LEVEL TONIGHT. REQUESTING TRAZODONE AND MELATONIN FOR SLEEP AID TONIGHT. PATIENT APPEARS TO BE SLEEPING WELL T/O NIGHT, RESP EVEN AND UNLABORED. CONTINUE TO MONITOR Q15MIN
[2025-08-04 09:07] VITALS: BP 102/67
--- NOTE | 2025-08-04 14:40 | NUR ---
SHIFT ASSESSMENT: PT DENIED SI, HI AND AVH. SHE REPORTED ANXIETY OF 4/10w. SHE DESCRIBED HER MOOD , "GOOD." AND HER AFFECT WAS EUTHYMIC. PT APPEARS TO BE IN GOOD HUMOR THROUGHOUT THE DAY. SHE SAID, "MY BROTHER WILL COME AND GET ME TOMORROW WHEN I LEAVE HERE."
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
[2025-08-04 20:47] VITALS: BP 120/70
--- NOTE | 2025-08-04 23:56 | NUR ---
MID SHIFT SUMMARY: PATIENT WAS IN HER BED RESTING AT THE BEGINNING OF THE SHIFT, BUT WENT INTO THE DAYROOM TO WATCH PART OF A MOVIE WITH STAFF AND PEERS. SHE WAS ABLE TO ANSWER RN SURGERY QUESTIONS IN A LOGICAL AND LINEAR MANNER. SHE STATED THAT SHE IS "EXCITED AND NERVOUS ABOUT DISCHARGING TOMORROW". SHE STATED, "I'M GLAD TO KNOW THAT YOU (U) ARE HERE. WE USED TO HAVE TO GO WAY UP NORTH." SHE STATED THAT SHE HAD "A GOOD EXPERIENCE". SHE DENIED SUICIDAL IDEATION, STATING THAT WHEN SHE FEELS THAT WAY "I'VE LEARNED TO TELL SOMEONE RIGHT AWAY". SHE DENIED THOUGHTS OF SELF HARMING AND STATED THAT SHE WAS NOT HAVING A/V/T HALLUCINATIONS AT THIS TIME. SHE PARTICIPATED IN SNACK FOR THE FIRST TIME IN A FEW DAYS, AND WROTE ON HER WRAP UP GROUP PAPER. SHE WENT TO BED AFTER SNACK AND WAS NOTED TO BE RESTING QUIETLY WITH EYES CLOSED AND RESPIRATIONS CONFIRMED. REPORT GIVEN TO IVETT IGLESIAS, WHO WILL TAKE OVER CARE OF THIS PATIENT.
--- NOTE | 2025-08-05 04:37 | NUR ---
END OF SHIFT SUMMARY Assumed care of this patient at 2400. She has been sleeping well since that time. Please see MID SHIFT SUMMARY under RN/MULLING MACHINE OPERATOR shift summary for more detailed information. Will continue close observations every 15 minutes for safety and comfort.
--- NOTE | 2025-08-05 07:26 | NUR ---
IMPORTANT DISCHARGE INFORMATION PATIENT BEING DISCHARGED TODAY. HER BROTHER "CORBY" WILL BE PICKING HER UP AROUND 1PM TODAY. HIS NUMBER IS . ALL PARTIES VERBALIZE AN UNDERSTANDING. FOLLOW UP APPOINTMENT WITH PCP ON 08/08/25 AT 8:30AM WITH FERNANDO FOOTE. REFERRAL PLACED FOR MENTAL HEALTH SERVICES AT [facility]. PHARMACY: [facility] FAX NUMBER
[2025-08-05 08:58] VITALS: BP 122/72
[2025-08-05] MEDS ORDERED: RISP1 PO (09:44)
--- NOTE | 2025-08-05 13:01 | NUR ---
DISCHARGE PT A/O X4; PLEASANT AND COOPERATIVE WITH CARE. SHE DENIES SI AND HI BUT SAYS THAT HER "VOICES ARE QUIETER". PT REPORTS BEING ANXIOUS TO DISCHARGE AND TREATED PER EMR. PT DISCHARGED ON INVEGA INJECTION AND NEXT INJECTION IS DUE ON 08/29/25. PT EDUCATED ON DC INSTRUCTIONS AND SHE VERBALIZED UNDERSTANDING. PT WAS PICKED UP BY BROTHER AND LEFT UNIT AT 1300.
== END 2025-08-05 13:00 | disposition home or self-care (01) | DRG 885 ==
LOC: BHU 11:54
PROVIDERS: ADMIT Psychiatry & Neurology Psychiatry
DX: F29 Unspecified psychosis not due to a substance or known physiological condition (principal); R45.851 Suicidal ideations; F15.20 Other stimulant dependence, uncomplicated; Z88.2 Allergy status to sulfonamides; Z88.8 Allergy status to other drugs, medicaments and biological substances; Z88.1 Allergy status to other antibiotic agents; Z91.030 Bee allergy status; Z91.038 Other insect allergy status; Z98.51 Tubal ligation status; F10.90 Alcohol use, unspecified, uncomplicated; F17.210 Nicotine dependence, cigarettes, uncomplicated
CPT/HCPCS: 36415; 80061; 83036; A9270